=== PATIENT | male | born 1960 | race Caucasian/White ===

== ENCOUNTER 2017-01-21 19:04 | Emergency (ER) | payer BC ==
[~2017-01-21] VITALS: Ht 165.1 cm; Wt 76.7 kg
[~2017-01-21 19:04] MED LIST: ATENOLOL25 MG PO; BENAZEPRIL HYDR20 M1 PO; FOL1 PO; SER25 PO; SERTRALINE HYDR50 M1 PO; THERAGRAN-M1 TA4 PO; THI100 PO; VIS25 PO; ZOLOFT50 MG PO
[2017-01-21 20:57] LABS: BASOPHIL % 0.6 % (0-2); PLATELET COUNT 157 x10^3mcL (130-400)
[2017-01-21 20:59] LABS: CHLORIDE SERUM 98 mmol/L (98-107); CREATININE SERUM 1.3 mg/dL (0.7-1.3); GFR1 > 60 mL/min; GLUCOSE SERUM 118 mg/dL (74-106); POTASSIUM SERUM 3.9 mmol/L (3.5-5.1); RED CELL DISTRIBUTION WIDTH 15.1 % (11.5-14.5); SODIUM SERUM 133 mmol/L (136-145)
[2017-01-21 21:05] LABS: ALBUMIN 4.5 g/dL (3.4-5.0); ALKALINE PHOSPHATASE 71 U/L (46-116); ALT/SGPT 32 U/L (16-63); AST/SGOT 31 U/L (15-37); BILIRUBIN TOTAL 0.68 mg/dL (0.20-1.00); LIPASE 331 IU/L (73-393); MAGNESIUM 1.9 mg/dL (1.8-2.4); PHOSPHOROUS 4.6 mg/dL (2.5-4.9); TOTAL PROTEIN, SERUM 8.4 g/dL (6.4-8.2)
[2017-01-22 00:22] VITALS: BP 163/110
== END 2017-01-22 00:22 | disposition home or self-care (01) ==
LOC: ED 19:04
PROVIDERS: Emergency Medicine
DX: F10.20 Alcohol dependence, uncomplicated (principal); E51.9 Thiamine deficiency, unspecified; F04 Amnestic disorder due to known physiological condition; I10 Essential (primary) hypertension
CPT/HCPCS: 83880; G0480; J2405; J3411; J3475; J3490; J7030; Q0092

== ENCOUNTER 2017-03-25 00:22 | Emergency (ER) | payer BC ==
[2017-03-25 02:06] VITALS: BP 117/75
== END 2017-03-25 02:07 | disposition home or self-care (01) ==
LOC: ED 00:22
DX: S01.511A Laceration without foreign body of lip, initial encounter (principal); I10 Essential (primary) hypertension; Y08.89XA Assault by other specified means, initial encounter; Y93.89 Activity, other specified; Y99.8 Other external cause status; Y92.89 Other specified places as the place of occurrence of the external cause
CPT/HCPCS: J2001

== ENCOUNTER 2017-06-06 11:38 | Emergency (ER) | payer BC ==
[~2017-06-06] VITALS: Ht 175.3 cm; Wt 77.1 kg
[2017-06-06 11:46] VITALS: Ht 175.3 cm; Wt 77.1 kg
[2017-06-06 13:46] LABS: BASOPHIL % 0.6 % (0-2)
[2017-06-06 13:48] LABS: PLATELET COUNT 93 x10^3mcL (130-400); RED CELL DISTRIBUTION WIDTH 15.5 % (11.5-14.5)
[2017-06-06 14:24] LABS: ALBUMIN 4.6 g/dL (3.4-5.0); ALKALINE PHOSPHATASE 100 U/L (46-116); ALT/SGPT 82 U/L (16-63); AST/SGOT 162 U/L (15-37); BILIRUBIN TOTAL 1.81 mg/dL (0.20-1.00); CALCIUM 8.8 mg/dL (8.5-10.1); CARBON DIOXIDE 19.2 mmol/L (21-32); CHLORIDE SERUM 99 mmol/L (98-107); CREATININE SERUM 0.9 mg/dL (0.7-1.3); GFR1 > 60 mL/min; GLUCOSE SERUM 112 mg/dL (74-106); SODIUM SERUM 139 mmol/L (136-145)
[2017-06-06 14:25] LABS: TOTAL PROTEIN, SERUM 8.4 g/dL (6.4-8.2)
[2017-06-06 14:26] LABS: POTASSIUM SERUM 2.9 mmol/L (3.5-5.1)
[2017-06-06 15:54] VITALS: BP 120/70
== END 2017-06-06 15:54 | disposition home or self-care (01) ==
LOC: ED 11:38
PROVIDERS: Emergency Medicine
DX: F10.239 Alcohol dependence with withdrawal, unspecified (principal); K70.10 Alcoholic hepatitis without ascites
CPT/HCPCS: 99406; J2060; J7030